=== PATIENT | male | born 1935 | race Caucasian/White ===

== ENCOUNTER 2017-03-10 14:37 | Emergency (ER) | payer OTHER ==
[2017-03-10 14:49] VITALS: RESP 16
--- NOTE | 2017-03-10 15:23 | EDPHY ---
H & P Stated Complaint: rt hand swollen/painful s/p fall while hiking yesterday HPI/ROS: HPI CHIEF COMPLAINT: Right hand pain swelling status post fall HISTORY OF PRESENT ILLNESS: This patient very pleasant 82-year-old male he does not take any medications he denies having any significant medical history, who presents emergency room with right hand swelling and ecchymosis. Minimal pain. This started after he [place] He denies any significant pain yesterday however the swelling progressively got worse today with ecchymosis and pain. He is neurovascularly intact. It is noted he has ecchymosis to the thenar eminence that tracks down the palm of his right hand. He also has pain to the 2nd ray, base. He has full range of motion neurovascular intact good radial pulse, good cap refill. Swelling present. Pain is 3/10 throbbing. Past Medical History: Denies significant medical history Past Surgical History: Denies significant surgical history Social History: Denies daily use of drugs alcohol tobacco products Family History: Noncontributory ROS REVIEW OF SYSTEMS: A comprehensive 10 point review of systems is otherwise negative aside from elements mentioned in the history of present illness. Exam Constitutional triage nursing summary reviewed, vital signs reviewed, awake/ alert. Eyes normal conjunctivae and sclera, EOMI, PERRLA. HENT normal inspection, atraumatic, moist mucus membranes, no epistaxis, neck supple/ no meningismus, no raccoon eyes. Respiratory clear to auscultation bilaterally, normal breath sounds, no respiratory distress, no wheezing. Cardiovascular rate normal, regular rhythm, no murmur, no edema, distal pulses normal. Gastrointestinal soft, non-tender, no rebound, no guarding, normal bowel sounds, no distension, no pulsatile mass. Genitourinary no CVA tenderness. Musculoskeletal right hand: He denies any significant pain yesterday however the swelling progressively got worse today with ecchymosis and pain. He is neurovascularly intact. It is noted he has ecchymosis to the thenar eminence that tracks down the palm of his right hand. He also has pain to the 2nd ray, base. He has full range of motion neurovascular intact good radial pulse, good cap refill. no midline vertebral tenderness, full range of motion, no calf swelling, no tenderness of extremities, no meningismus, good pulses, neurovascularly intact. Skin pink, warm, & dry, no rash, skin atraumatic. Neurologic awake, alert and oriented x 3, AAOx3, moves all 4 extremities equally, motor intact, sensory intact, CN II-XII intact, normal cerebellar, normal vision, normal speech. Psychiatric normal mood/affect. Heme/Lymph/Immune no lymphadenopathy. Differential Diagnosis: Includes but is not limited to in a particular order: Right hand contusion, soft tissue injury, fracture Medical Decision Making: Plan for this patient x-ray right hand. Re-evaluation: 1625: Right hand x-ray reviewed by myself. I do not appreciate a fracture. Soft tissue swelling. This patient be placed in a sugar-tong splint for comfort follow-up with Hand surgery. I cannot rule out an occult fracture. He does have ecchymosis and significant swelling. Will immobilize and have follow-up care repeat imaging this week to see if there is a small fracture line that shows up. This has been explained to the patient understands agreeable for plan. Source: Patient - Personal History Current Tetanus/Diphtheria Vaccine: Yes Current Tetanus Diphtheria and Acellular Pertussis (TDAP): Yes Tetanus Vaccine Date: < 10 YEARS - Medical/Surgical History Hx Asthma: No Hx Chronic Respiratory Disease: No Hx Diabetes: No Hx Cardiac Disease: No Hx Renal Disease: No Hx Cirrhosis: No Hx Alcoholism: No Hx HIV/AIDS: No Hx Splenectomy or Spleen Trauma: No Other PMH: choly/cataract surgery - Social History Smoking Status: Never smoked Constitutional: Initial Vital Signs Temperature (C) 36.6 C 03/10/17 14:43 Heart Rate 91 03/10/17 14:43 Respiratory Rate 16 03/10/17 14:43 Blood Pressure 147/72 H 03/10/17 14:43 O2 Sat (%) 94 03/10/17 14:43 O2 Delivery Mode Room Air Allergies/Adverse Reactions: No Known Allergies Allergy (Verified 03/10/17 14:42) Home Medications: Medication Instructions Recorded Ascorbic Acid [Vitamin C 500 mg 500 mg PO DAILY 03/09/12 (OTC)] Multivitamins [Multivitamin (OTC)] 1 each PO DAILY 03/09/12 Medical Decision Making - Diagnostics Imaging Results: Imaging Impressions Hand X-Ray 03/10/17 15:16 Impression: 1. Soft tissue swelling with no acute osseous findings. 2. Mild degenerative change. Departure - Departure Disposition: Home, Routine, Self-Care Clinical Impression: Hand fracture, right Qualifiers: Encounter type: initial encounter Fracture type: closed Qualified Code(s): S62.91XA - Unspecified fracture of right wrist and hand, initial encounter for closed fracture Condition: Good Instructions: Hand Fracture (ED), Hematoma (ED) Additional Instructions: 1.Please follow up with Hand surgery. We cannot fully identify hand fracture. There may be a small one we cannot see today. Please follow up with Hand surgery. 2. Return emergency room if you have any worsening symptoms questions or concerns. 3. Ice your hand 4. Take anti-inflammatory pain medicine like Tylenol and ibuprofen for pain control. No aspirin. Referrals: Wiliam Summers MD [Primary Care Provider] - As per Instructions Marquis Ceballos MD [Medical Doctor] - As per Instructions
[2017-03-10 17:00] VITALS: BP 136/69; PULSE 50; TEMP 97.2; O2SAT 96
== END 2017-03-10 17:11 | disposition home or self-care (01) ==
DX: S62.91XA Unspecified fracture of right hand, initial encounter for closed fracture (principal); W18.39XA Other fall on same level, initial encounter; Y93.01 Activity, walking, marching and hiking

== ENCOUNTER → 2018-08-23 | Outpatient (CLI) | payer OTHER | LOC: FIMAGING 08:12 | PROVIDERS: ATTEND Internal Medicine | DX: R13.13 Dysphagia, pharyngeal phase (principal); K22.4 Dyskinesia of esophagus; K21.9 Gastro-esophageal reflux disease without esophagitis ==